=== PATIENT | male | born 1975 | race Hispanic/Latino ===

== ENCOUNTER 2016-07-02 17:37 | Observation (INO) | payer SELFPAY ==
[2016-07-02 17:43] VITALS: BMI 24.3
[2016-07-02] MEDS ORDERED: Sodium Chloride 0.9% 1,000 ML IV ONE ×2 (18:40→19:38)
[2016-07-02] MEDS ORDERED: (Novolin R) Insulin Human Regular 100 units/ml vial IV STA ×2 (18:46→19:37)
[2016-07-02] MEDS ORDERED: Sodium Chloride 0.9% 1,000 ML ONE ×2 (18:53→19:58)
[2016-07-02] MEDS ORDERED: (Novolin R) Insulin Human Regular 100 units/ml vial ONE ×2 (18:54→19:59)
[2016-07-02] MEDS ORDERED: Morphine 4 MG/ML VIAL ONE (18:56)
[2016-07-02 19:05] LABS: BASO % 0.4 % (0.0-2.0); EOS # 0.2 K/uL (0.0-0.7); HEMATOCRIT 38.1 % (35.0-51.0); LYMPH # 1.5 K/uL (1.0-4.3); MEAN CELL VOLUME 96.7 fL (80.0-94.0); MEAN CORPUSCULAR HEMOGLOBIN 32.4 pg (27.0-31.0); MEAN CORPUSCULAR HGB CONC 33.5 g/dL (33.0-37.0); MEAN PLATELET VOLUME 9.1 fL (7.2-11.7); MONO # 0.5 K/uL (0.0-0.8); MONO % 6.6 % (0.0-10.0); RED CELL DISTRIBUTION WIDTH 13.9 % (11.5-14.5); WHITE BLOOD COUNT 7.3 K/uL (4.8-10.8)
--- NOTE | 2016-07-02 19:37 | C.PDOC ---
History Of Present Illness 40 year old patient, with a past medical history of pancreatitis and diabetes, presents to the ED complaining of burning epigastric pain for the past 3 days. Patient states the pain is consistent with prior episodes of pancreatitis. Patient has alcoholic pancreatitis for many years. Patient admits he did not drink alcohol for the past 5 years. The pain is radiating to his back. Patient denies any numbness, weakness, incontinence, fever, chills, nausea, vomiting, chest pain, or diarrhea. Time Seen by Provider: 07/02/16 18:39 Chief Complaint (Nursing): Abdominal Pain History Per: Patient History/Exam Limitations: no limitations Onset/Duration Of Symptoms: Days (3) Current Symptoms Are (Timing): Still Present Context: Other Severity: Mild Pain Scale Rating Of: 3 Location Of Pain/Discomfort: Epigastric Radiation Of Pain To:: Back Quality Of Discomfort: Burning, "Pain" Exacerbating Factors: None Alleviating Factors: None Last Bowel Movement: Today Recent travel outside of the [place]: No Past Medical History Reviewed: Historical Data, Nursing Documentation, Vital Signs Vital Signs: Last Vital Signs Temp 98.5 F 07/02/16 17:43 Pulse 87 07/02/16 19:03 Resp 18 07/02/16 19:03 BP 135/86 07/02/16 19:03 Pulse Ox 95 07/02/16 22:25 - Medical History PMH: Diabetes, Pancreatitis Family History: States: Unknown Family Hx - Social History Hx Alcohol Use: No Hx Substance Use: Yes - Immunization History Hx Tetanus Toxoid Vaccination: Yes Hx Influenza Vaccination: Yes Hx Pneumococcal Vaccination: Yes Review Of Systems Except As Marked, All Systems Reviewed And Found Negative. Constitutional: Negative for: Fever, Chills Cardiovascular: Negative for: Chest Pain Respiratory: Negative for: Shortness of Breath Gastrointestinal: Positive for: Abdominal Pain (epigastric). Negative for: Nausea, Vomiting, Diarrhea Genitourinary: Negative for: Incontinence Musculoskeletal: Positive for: Back Pain Neurological: Negative for: Weakness, Numbness Physical Exam - Physical Exam Appears: Non-toxic, No Acute Distress, Other (thin, athletic) Skin: Warm, Dry Head: Atraumatic, Normacephalic Eye(s): bilateral: Normal Inspection, EOMI Oral Mucosa: Moist Neck: Normal ROM, Supple Chest: Symmetrical Cardiovascular: Rhythm Regular Respiratory: Normal Breath Sounds, No Rales, No Rhonchi, No Wheezing Gastrointestinal/Abdominal: Soft, Tenderness (epigastric), No Guarding, No Rebound Back: Normal Inspection, No CVA Tenderness Extremity: Normal ROM Neurological/Psych: Oriented x3, Normal Speech, Normal Cognition, Normal Motor, Normal Sensation Gait: Steady ED Course And Treatment - Laboratory Results Result Diagrams: 07/02/16 19:01 07/02/16 19:01 Lab Interpretation: Abnormal (repeat glu 231 W 2100, tox + THC) O2 Sat by Pulse Oximetry: 95 (room air) Pulse Ox Interpretation: Normal - CT Scan/US Abdomen/Pelvis CT Other Rad Studies (CT/US): Interpreted By Me Progress Note: Plan: -Abdomen/Pelvis CT. -EKG. -Labs. -Chest x-ray. - Morphine, Insulin, Pepcid, Zofran, IV fluids Reevaluation Time: 22:24 Reassessment Condition: Improved - Physician Consult Information Outcome Of Conversation: 2225: d/w Dr. Andrews- shade to Med Surg Obs Critical Care Time - Critical Care Note Total Time (in mins): 90 Documented critical care: time excludes all time spent performing seperately billable procedures. Medical Decision Making Medical Decision Making: acute on chronic pancreatitis and uncontrolled DM without elev Ketones Disposition Doctor Will See Patient In The: Hospital Counseled Patient/Family Regarding: Studies Performed, Diagnosis - Disposition Disposition: HOSPITALIZED Disposition Time: 22:25 Condition: GOOD - Clinical Impression Clinical Impression: Pancreatitis, Uncontrolled diabetes mellitus - Scribe Statement The provider has reviewed the documentation as recorded by the Scribe Nina Goodrich Provider Attestation: All medical record entries made by the José Antonioibe were at my direction and personally dictated by me. I have reviewed the chart and agree that the record accurately reflects my personal performance of the history, physical exam, medical decision making, and the department course for this patient. I have also personally directed, reviewed, and agree with the discharge instructions and disposition.
[2016-07-02 19:42] LABS: CHLORIDE 90 mmol/L (98-107); POTASSIUM 4.5 mmol/L (3.6-5.2); SODIUM 134 mmol/L (132-148)
[2016-07-02 19:44] LABS: GFR AFRICAN-AMERICAN > 60
[2016-07-02 19:45] LABS: ALB/GLOB RATIO 1.7 (1.0-2.1); ALKALINE PHOSPHATASE 78 U/L (38-126); ALT/SGPT 30 U/L (21-72); AST/SGOT 21 U/L (17-59); BILIRUBIN,TOTAL 1.7 mg/dL (0.2-1.3); BLOOD UREA NITROGEN 16 mg/dL (9-20); CALCIUM 9.8 mg/dl (8.6-10.4); CARBON DIOXIDE 26 mmol/L (22-30); TOTAL PROTEIN 7.5 g/dL (6.3-8.3)
[2016-07-02 19:46] LABS: ALCOHOL SERUM < 10 mg/dl (0-10)
[2016-07-02 20:15] LABS: GLUCOSE,RANDOM 609 mg/dL (75-110)
[2016-07-02 20:40] LABS: RBC URINE 1 /hpf (0-3); URINE BILIRUBIN NEGATIVE (NEGATIVE); URINE BLOOD NEGATIVE (NEGATIVE); URINE COLOR Straw (YELLOW); URINE GLUCOSE (UA) 3+ mg/dL (Normal); URINE KETONE NEGATIVE (NEGATIVE); URINE LEUKOCYTE ESTERASE NEG Leu/uL (Negative); URINE PROTEIN NEGATIVE (NEGATIVE); URINE UROBILINOGEN NORMAL mg/dL (0.2-1.0); WBC URINE < 1 /hpf (0-5)
[2016-07-02] MEDS ORDERED: Iodixanol 320 MG/ML 100 ML BOTTLE IV ONE (20:43)
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
[2016-07-02] MEDS ORDERED: Lactated Ringer's 1,000 ML IV SCH (23:45)
[2016-07-03] MEDS ORDERED: (Lantus) Insulin Glargine, Recombinant SC SCH (00:38)
[2016-07-03] MEDS: Lactated Ringer's 1,000 ML IV SCH ×4 (01:01→16:35)
[2016-07-03 07:24] LABS: BASO % 0.6 % (0.0-2.0); EOS # 0.4 K/uL (0.0-0.7); EOS % 5.5 % (0.0-4.0); HEMATOCRIT 35.3 % (35.0-51.0); LYMPH # 2.2 K/uL (1.0-4.3); LYMPH % 30.3 % (20.0-40.0); MEAN PLATELET VOLUME 8.8 fL (7.2-11.7); MONO # 0.5 K/uL (0.0-0.8); MONO % 7.2 % (0.0-10.0); RED CELL DISTRIBUTION WIDTH 13.8 % (11.5-14.5); WHITE BLOOD COUNT 7.4 K/uL (4.8-10.8)
[2016-07-03 07:27] LABS: CHLORIDE 98 mmol/L (98-107); POTASSIUM 4.3 mmol/L (3.6-5.2); SODIUM 138 mmol/L (132-148)
[2016-07-03 07:29] LABS: ALB/GLOB RATIO 1.7 (1.0-2.1); ALKALINE PHOSPHATASE 59 U/L (38-126); AST/SGOT 17 U/L (17-59); BILIRUBIN,TOTAL 1.5 mg/dL (0.2-1.3); BLOOD UREA NITROGEN 11 mg/dL (9-20); CARBON DIOXIDE 29 mmol/L (22-30); GFR AFRICAN-AMERICAN > 60; GLUCOSE,RANDOM 285 mg/dL (75-110); TOTAL PROTEIN 6.1 g/dL (6.3-8.3)
[2016-07-03 07:30] LABS: ALT/SGPT 31 U/L (21-72); CALCIUM 8.3 mg/dl (8.6-10.4); CHOLESTEROL 140 mg/dL (0-199); MAGNESIUM 1.8 mg/dL (1.6-2.3); PHOSPHOROUS 3.1 mg/dL (2.5-4.5)
[2016-07-03] MEDS: (Novolog) Insulin Aspart, Recombinant 100 u/ml 10 ml vial SC SCH ×2 (08:02→12:12)
--- NOTE | 2016-07-03 08:41 | CT ---
PROCEDURE: CT Abdomen and Pelvis with contrast HISTORY: Epigastric pain. Relevant medical history: Pancreatitis COMPARISON: None. TECHNIQUE: Contrast dose: 100 cc Visipaque 320. Radiation dose: Total exam DLP = 449.28 mGy-cm. This CT exam was performed using one or more of the following dose reduction techniques: Automated exposure control, adjustment of the mA and/or kV according to patient size, and/or use of iterative reconstruction technique. FINDINGS: LOWER THORAX: Unremarkable. LIVER: Unremarkable. No gross lesion or ductal dilatation. GALLBLADDER AND BILE DUCTS: Unremarkable. PANCREAS: Atrophic pancreas. Innumerable pancreatic calcifications consistent with chronic pancreatitis without evidence of acute pancreatitis. SPLEEN: Unremarkable. ADRENALS: Unremarkable. No mass. KIDNEYS AND URETERS: Unremarkable. No hydronephrosis. No solid mass. VASCULATURE: Unremarkable. No aortic aneurysm. BOWEL: Unremarkable. No obstruction. No gross mural thickening. Constipation without fecal impaction or obstruction. APPENDIX: Normal appendix. PERITONEUM: Unremarkable. No free fluid. No free air. LYMPH NODES: Unremarkable. No enlarged lymph nodes. BLADDER: Unremarkable. REPRODUCTIVE: Unremarkable. BONES: No acute fracture. OTHER FINDINGS: None. IMPRESSION: No acute findings related to/accounting for the clinical presentation. Additional benign and/or incidental findings described above. Concordant results (preliminary interpretation) provided by [employer]. Procedure Completed: 21:18. Preliminary ([facility]) Report: Dictated and Authenticated: 21:32 Final Interpretation: 08:38. July 03, 2016.
--- NOTE | 2016-07-03 12:03 | RAD ---
PROCEDURE: CHEST RADIOGRAPH, 1 VIEW portable study 19:00. HISTORY: abd pain COMPARISON: None available. FINDINGS: LUNGS: Clear. PLEURA: No pneumothorax or pleural fluid seen. CARDIOVASCULAR: Normal. OSSEOUS STRUCTURES: No significant abnormalities. VISUALIZED UPPER ABDOMEN: Normal. OTHER FINDINGS: None. IMPRESSION: No active disease.
--- NOTE | 2016-07-03 16:17 | CP.PCM.PN ---
<Katy Hurst Reinier - Last Filed: 07/03/16 15:53> Subjective - Date & Time of Evaluation Date of Evaluation: 07/03/16 Time of Evaluation: 09:40 - Subjective Subjective: PGY2 Medicine Note- Dr. Jones's service: Patient seen and examined at bedside this AM. Patient reports abdominal pain. Patient says he has had pancreatitis before. He stopped drinking 5 years ago so he thought he could not have it again. He was keeping food down and did not feel nauseous. He decided to come into ED yesterday because the pain got so bad. Patient reports improved pain but only because of pain meds. Patient says he has a big [employer] job tomorrow and wants to go to it. Patient denies fever, chills, chest pain, headache, SOB, nausea, vomiting, diarrhea, constipation, dysuria. Objective - Vital Signs/Intake and Output Vital Signs (last 24 hours): Temp Pulse Resp BP Pulse Ox 97.6 F 69 20 124/74 94 L 07/03/16 08:29 07/03/16 08:29 07/03/16 08:29 07/03/16 08:29 07/03/16 08:29 Intake and Output: 07/03/16 07/03/16 06:59 18:59 Intake Total 875 1294 Balance 875 1294 - Medications Medications: Current Medications Famotidine (Pepcid) 20 mg IVP Q12 [facility] Last Admin: 07/03/16 09:20 Dose: 20 mg Heparin Sodium (Porcine) (Heparin) 5,000 units SC Q12 [facility] Last Admin: 07/03/16 11:17 Dose: 5,000 units Lactated Ringer's (Lactated Ringer's) 1,000 mls @ 200 mls/hr IV .Q5H [facility] Last Admin: 07/03/16 15:17 Dose: Not Given Insulin Aspart (Novolog) 0 unit SC ACHS [facility] PRN Reason: Protocol Last Admin: 07/03/16 12:12 Dose: 3 unit Insulin Glargine (Lantus) 18 unit SC HS [facility] Last Admin: 07/03/16 00:56 Dose: 18 units Morphine Sulfate (Morphine) 2 mg IVP Q4H PRN PRN Reason: Pain, moderate (4-7) Last Admin: 07/03/16 12:08 Dose: 2 mg Ondansetron HCl (Zofran Inj) 4 mg IVP Q6H PRN PRN Reason: Nausea/Vomiting - Labs Labs: 07/03/16 07:11 07/03/16 07:11 - Constitutional Appears: Non-toxic, No Acute Distress - Head Exam Head Exam: NORMAL INSPECTION - Eye Exam Eye Exam: EOMI - ENT Exam ENT Exam: Mucous Membranes Moist - Respiratory Exam Respiratory Exam: Clear to Ausculation Bilateral, NORMAL BREATHING PATTERN. absent: Rales, Rhonchi, Wheezes - Cardiovascular Exam Cardiovascular Exam: REGULAR RHYTHM, +S1, +S2. absent: Gallop, Rubs, Murmur - GI/Abdominal Exam GI & Abdominal Exam: Soft, Tenderness, Normal Bowel Sounds Additional comments: no rosa maria's sign - Extremities Exam Extremities Exam: Normal Capillary Refill. absent: Pedal Edema - Neurological Exam Neurological Exam: Alert, Awake, Oriented x3 - Psychiatric Exam Psychiatric exam: Normal Affect, Normal Mood - Skin Skin Exam: Normal Color, Warm Assessment and Plan - Assessment and Plan (Free Text) Assessment: (1) Pancreatitis Assessment and Plan: CT abd/pelvis- pancreatic calcifications noted suggestive of chronic pancreatitis; no peripancreatic fluid noted; constipation; small focal liver hypodensity- Refer to full report EKG- NSR Lipase 1561 LR @ 125 cc/hr Monitor for signs of fluid overload Full liquid diet Morphine 2 mg IV Q4 PRN Zofran 4 mg Q 6 PRN Lipase decreased from 1500s to 1100s Status: Acute (2) Uncontrolled diabetes mellitus Assessment and Plan: Patient received 10 units and then an additional 8 units Insulin in ED Patient put on home regimen of regular 35U SC BID ISS F/U Hgb A1c, Lipid panel Accuchecks Home meds confirmed. Patient will likely benefit from diabetic management counseling Status: Acute (3) Drug use disorder Assessment and Plan: Hx of polysubstance use; prior alcohol use; though now sober 5 years UDS positive for marijuana Counseled on cessation Status: Acute (4) Prophylactic measure Assessment and Plan: SCDs Pepcid 20 mg IV Q12 Status: Acute <Jones,Peter H - Last Filed: 07/03/16 17:50> Objective - Vital Signs/Intake and Output Vital Signs (last 24 hours): Temp Pulse Resp BP Pulse Ox 97.9 F 81 21 111/72 95 07/03/16 16:00 07/03/16 16:00 07/03/16 16:00 07/03/16 16:00 07/03/16 16:00 Intake and Output: 07/03/16 07/03/16 06:59 18:59 Intake Total 875 1294 Balance 875 1294 - Medications Medications: Current Medications Famotidine (Pepcid) 20 mg IVP Q12 [facility] Last Admin: 07/03/16 09:20 Dose: 20 mg Heparin Sodium (Porcine) (Heparin) 5,000 units SC Q12 [facility] Last Admin: 07/03/16 11:17 Dose: 5,000 units Lactated Ringer's (Lactated Ringer's) 1,000 mls @ 200 mls/hr IV .Q5H [facility] Last Admin: 07/03/16 16:35 Dose: Not Given Insulin Aspart (Novolog) 0 unit SC ACHS [facility] PRN Reason: Protocol Last Admin: 07/03/16 12:12 Dose: 3 unit Insulin Human Regular (Novolin R) 17 unit SC BID [facility] Morphine Sulfate (Morphine) 2 mg IVP Q4H PRN PRN Reason: Pain, moderate (4-7) Last Admin: 07/03/16 16:08 Dose: 2 mg Ondansetron HCl (Zofran Inj) 4 mg IVP Q6H PRN PRN Reason: Nausea/Vomiting - Labs Labs: 07/03/16 07:11 07/03/16 07:11 Attending/Attestation - Attestation I have personally seen and examined this patient.: Yes I have fully participated in the care of the patient.: Yes I have reviewed all pertinent clinical information, including history, physical exam and plan: Yes Notes (Text): 07/03/16 17:46 Medical Attending: Patient was seen and examined by me. Agree with the above note by the resident. We saw the patient together. When we saw the patient he reported feeling much better than before. He wanted to try a light diet and so we advanced him to a clear liquid diet. We reviewed some of the numbers with the patient as well as CT scan. The patient explained to us that he was considering leaving later in the day since he had to work tommorow. We advised him to stay, but I later learned he did decide to leave AMA. Dylon Jones
[2016-07-03 17:14] VITALS: BP 111/72; PULSE 81; RESP 21; TEMP 97.9; O2SAT 95
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
[2016-07-03] MEDS ORDERED: (Novolin R) Insulin Human Regular 100 units/ml vial SC SCH ×2 (18:00)
--- NOTE | 2016-07-09 13:38 | CARD ---
APPROVED REPORT EKG Measurement Heart [id number] <Conclusion> Normal sinus rhythm Normal ECG
== END 2016-07-03 17:00 | disposition left against medical advice (07) ==
LOC: C.ER 17:37 → C.9E 22:23 → C.3T 22:39
PROVIDERS: ADMIT Internal Medicine; ATTEND Internal Medicine
DX: K85.90 Acute pancreatitis without necrosis or infection, unspecified (principal); E11.65 Type 2 diabetes mellitus with hyperglycemia; F17.210 Nicotine dependence, cigarettes, uncomplicated; Z79.4 Long term (current) use of insulin; F12.10 Cannabis abuse, uncomplicated
CPT/HCPCS: 36415; 71010; 74177; 80053; 80061; 81001; 82009; 82948; 83036; 83690; 83735; 84100; 85025; 96361; 96372; 96374; 96375; 96376; 99285; G0378; G0480; J1644; J2270; J2405; J7040; J7120; Q9967

== ENCOUNTER 2017-07-30 15:51 | Emergency (ER) | payer SELFPAY ==
[2017-07-30 15:52] VITALS: BMI 23.7
[2017-07-30 16:05] VITALS: RESP 20
[2017-07-30] MEDS ORDERED: Sodium Chloride 0.9% 1,000 ML IV ONE (16:24)
--- NOTE | 2017-07-30 16:28 | C.PDOC ---
History Of Present Illness 41 y/o male with a history of pancreatitis and diabetes presents to the ED for muscle cramps all over his body. Patient reports he has lost 25 lbs in the last 2 months associated with fatigue. He takes insulin daily but hasn't seen a PMD in many years. Patient also complains of loose stools for the past 4 months. He also reports he has recently had teeth fall out. Patient also has a Dupuytren's contracture in his left pinky. Denies any SOB, chest pain, or fever. PMD: has none Time Seen by Provider: 07/30/17 16:14 Chief Complaint (Nursing): Abdominal Pain History Per: Patient History/Exam Limitations: no limitations Onset/Duration Of Symptoms: Days Current Symptoms Are (Timing): Still Present Associated Symptoms: denies: Fever, Back Pain Recent travel outside of the [place]: No Past Medical History Reviewed: Historical Data, Nursing Documentation, Vital Signs Vital Signs: Last Vital Signs Temp 98.7 F 07/30/17 15:59 Pulse 108 H 07/30/17 15:59 Resp 20 07/30/17 15:59 BP 123/80 07/30/17 15:59 Pulse Ox 97 07/30/17 16:36 - Medical History PMH: Anxiety, Diabetes, Pancreatitis Denies: Bipolar Disorder, Crohn's Disease, Depression, Diverticulitis, Gastritis, Gall Bladder Disease, Hepatitis, HIV, HTN, Hyperthyroidism, Hypothyroidism, Paranoia, Post Traumatic Stress Disorder, Chronic Kidney Disease , Schizophrenia, Seizures, Sexually Transmitted Disease Surgical History: Denies: Appendectomy, CABG, Carotid Endarterectomy, Cholecystectomy, Coronary Stent, Tonsillectomy Family History: States: Unknown Family Hx - Social History Hx Tobacco Use: Yes Hx Alcohol Use: No (extensive HX however 6 years sober) Hx Substance Use: Yes (cocaine and cannabis) - Immunization History Hx Tetanus Toxoid Vaccination: (unk) Hx Influenza Vaccination: No Hx Pneumococcal Vaccination: (unk) Review Of Systems Except As Marked, All Systems Reviewed And Found Negative. Constitutional: Positive for: Weight loss, Other (fatigue). Negative for: Fever ENT: Positive for: Other (teeth fallling out) Cardiovascular: Negative for: Chest Pain Respiratory: Negative for: Shortness of Breath Gastrointestinal: Positive for: Other (loose stool) Musculoskeletal: Positive for: Neck Pain, Other (muscular cramps throughout entire body) Physical Exam - Physical Exam Appears: Non-toxic, No Acute Distress, Other (anxious and thin) Skin: Normal Color, Warm, No Dry (moist), No Rash Head: Atraumatic Eye(s): bilateral: Normal Inspection, PERRL, EOMI Neck: Normal, Supple Cardiovascular: Rhythm Regular, No Murmur Respiratory: Normal Breath Sounds Gastrointestinal/Abdominal: Normal Exam, Soft, No Tenderness Back: Normal Inspection Neurological/Psych: Oriented x3 ED Course And Treatment - Laboratory Results Result Diagrams: 07/30/17 16:38 07/30/17 16:38 O2 Sat by Pulse Oximetry: 97 (RA) Pulse Ox Interpretation: Normal Medical Decision Making Medical Decision Making: Time: 15:59 Impression: Diabetes, systemic illness, chronic weight loss Initial Plan: * EKG * CMP * Lipase Stat * CBC * Chest X-Ray * IV Fluids Scribe Attestation: Documented by Ty Castro acting as a scribe Taylor Duarte MD. Scribe Attestation: All medical record entries made by the Scribe were at my direction and personally dictated by me. I have reviewed the chart and agree that the record accurately reflects my personal performance of the history, physical exam, medical decision making, and the department course for this patient. I have also personally directed, reviewed, and agree with the discharge instructions and disposition. Disposition - Disposition Referrals: [facility] [Outside] Disposition: HOME/ ROUTINE Disposition Time: 18:07 Condition: IMPROVED Forms: [facility] (Omani), General Discharge Instructions - POA Present On Arrival: None - Clinical Impression Clinical Impression: Weight loss, Hyperglycemia
[2017-07-30 16:41] LABS: BASO % 0.6 % (0.0-2.0); EOS # 0.2 K/uL (0.0-0.7); EOS % 3.5 % (0.0-4.0); HEMOGLOBIN 12.7 g/dL (12.0-18.0); LYMPH # 1.6 K/uL (1.0-4.3); LYMPH % 22.4 % (20.0-40.0); MEAN CELL VOLUME 96.5 fL (80.0-94.0); MEAN CORPUSCULAR HEMOGLOBIN 32.7 pg (27.0-31.0); MEAN CORPUSCULAR HGB CONC 33.9 g/dL (33.0-37.0); MEAN PLATELET VOLUME 8.6 fL (7.2-11.7); MONO # 0.5 K/uL (0.0-0.8); MONO % 6.6 % (0.0-10.0); NEUT # 4.7 K/uL (1.8-7.0); NEUT % 66.9 % (50.0-75.0); RBC 3.89 Mil/uL (4.40-5.90); RED CELL DISTRIBUTION WIDTH 12.1 % (11.5-14.5)
--- NOTE | 2017-07-30 16:55 | RAD ---
Chest x-ray single frontal view History: Chest pain. Comparison: None available. Findings: Mild venous congestion. Mild bilateral hilar prominence. Heart size within normal limits. Degenerative changes in the spine. Impression: Mild venous congestion. Mild bilateral hilar prominence.
[2017-07-30 17:11] LABS: ALB/GLOB RATIO 1.6 (1.0-2.1); ALBUMIN 4.4 g/dL (3.5-5.0); ALT/SGPT 53 U/L (21-72); AST/SGOT 36 U/L (17-59); BLOOD UREA NITROGEN 13 mg/dL (9-20); CALCIUM 9.1 mg/dl (8.6-10.4); GFR AFRICAN-AMERICAN > 60; GFR NON-AFRICAN AMERICAN > 60; LIPASE 65 U/L (23-300)
[2017-07-30] MEDS ORDERED: Sodium Chloride 0.9% 1,000 ML ONE (17:49)
[2017-07-30] MEDS ORDERED: (Novolin R) Insulin Human Regular 100 units/ml vial IV STA (18:06)
[2017-07-30 18:23] VITALS: BP 110/70; PULSE 90; TEMP 98.3; O2SAT 96
--- NOTE | 2017-08-02 13:40 | CARD ---
APPROVED REPORT EKG Measurement Heart [id number] [id number] <Conclusion> Normal sinus rhythm with sinus arrhythmia Normal ECG
== END 2017-07-30 18:22 | disposition home or self-care (01) ==
LOC: C.ER 15:51
DX: E11.65 Type 2 diabetes mellitus with hyperglycemia (principal); R63.4 Abnormal weight loss; Z72.0 Tobacco use
CPT/HCPCS: 71045; 80053; 83690; 85025; 96360; 99284; J7030

== ENCOUNTER 2017-08-04 10:36 | Emergency (ER) | payer OTHER ==
[2017-08-04 10:37] VITALS: BMI 23.7
--- NOTE | 2017-08-04 12:51 | C.PDOC ---
History Of Present Illness 41yo male with history of diabetes, pancreatitis, presents to ER with complaints of body aches and feeling tired. Patient states he has also lost over 40lbs of weight over the past 5 months. He also reports over the past 3 months, he has been having intermittent watery diarrhea. Pt is concerned that " I drank so much alcohol before, is my pancreas still functioning. " Also requests to know if he has cancer. He denies any abdominal pain, nausea, vomiting, fever, chills, chest pain, shortness of breath. PT was seen 5 days ago for the same complaints, with normal labs and instructed to f/u with clinic. No new complaints. Admits to marijuana and cocaine use. Patient has a scheduled follow up in the clinic on 08/09/17. Time Seen by Provider: 08/04/17 11:23 Chief Complaint (Nursing): Medical Clearance History Per: Patient History/Exam Limitations: no limitations Onset/Duration Of Symptoms: Days Additional History Per: Patient Past Medical History Reviewed: Historical Data, Nursing Documentation, Vital Signs Vital Signs: Last Vital Signs Temp 98.3 F 08/04/17 13:08 Pulse 100 H 08/04/17 13:08 Resp 18 08/04/17 13:19 BP 108/79 08/04/17 13:08 Pulse Ox 98 08/05/17 14:17 - Medical History PMH: Anxiety, Diabetes, Pancreatitis Denies: Bipolar Disorder, Crohn's Disease, Depression, Diverticulitis, Gastritis, Gall Bladder Disease, Hepatitis, HIV, HTN, Hyperthyroidism, Hypothyroidism, Paranoia, Post Traumatic Stress Disorder, Chronic Kidney Disease , Schizophrenia, Seizures, Sexually Transmitted Disease Surgical History: Denies: Appendectomy, CABG, Carotid Endarterectomy, Cholecystectomy, Coronary Stent, Tonsillectomy Family History: States: No Known Family Hx, Unknown Family Hx - Social History Hx Tobacco Use: Yes Hx Alcohol Use: No (extensive HX however 6 years sober) Hx Substance Use: Yes (cocaine and cannabis) - Immunization History Hx Tetanus Toxoid Vaccination: (unk) Hx Influenza Vaccination: No Hx Pneumococcal Vaccination: (unk) Review Of Systems Except As Marked, All Systems Reviewed And Found Negative. Constitutional: Positive for: Malaise, Weight loss (50 lbs over 6 weeks). Negative for: Fever, Chills Cardiovascular: Negative for: Chest Pain Respiratory: Negative for: Shortness of Breath Gastrointestinal: Positive for: Diarrhea. Negative for: Nausea, Vomiting, Abdominal Pain Physical Exam - Physical Exam Appears: Non-toxic, No Acute Distress, Other (thin) Skin: Warm, Dry Head: Atraumatic, Normacephalic Eye(s): bilateral: Normal Inspection, EOMI Nose: Normal Oral Mucosa: Moist Neck: Normal ROM, Supple Chest: Symmetrical Cardiovascular: Rhythm Regular Respiratory: Normal Breath Sounds Gastrointestinal/Abdominal: Normal Exam, Soft, No Tenderness, No Mass, No Guarding, No Rebound Extremity: Normal ROM Neurological/Psych: Oriented x3 ED Course And Treatment O2 Sat by Pulse Oximetry: 98 (RA) Pulse Ox Interpretation: Normal Progress Note: Extensively discussed with patient signs and symptoms of concern. Patient was offered repeat labs, imaging studies and stool study as well, which he declined. He states he feels comfortable going home without further workup. Patient noted to have figerstick glucose level of 331 and again offered medication and further eval. Patient noted took 10 units of insulin and requests to be discharged. Case discussed with Dr. Celis and agrees with plan for discharge. Disposition - Disposition Referrals: [facility] [Outside] Disposition: HOME/ ROUTINE Disposition Time: 12:50 Condition: STABLE Additional Instructions: Follow up with the clinic as scheduled. Return to ER if symptoms persist or worsen. Instructions: Hyperglycemia, Adult (DC) Forms: [facility] (Mauritanian) - Clinical Impression Clinical Impression: Hyperglycemia, Uncontrolled diabetes mellitus, Weight loss - PA / INSURANCE SALES AGENT / Resident Statement MD/DO has reviewed & agrees with the documentation as recorded. - Scribe Statement The provider has reviewed the documentation as recorded by the Scribe (Katina Kirkpatrick) Provider Attestation: All medical record entries made by the Scribe were at my direction and personally dictated by me. I have reviewed the chart and agree that the record accurately reflects my personal performance of the history, physical exam, medical decision making, and the department course for this patient. I have also personally directed, reviewed, and agree with the discharge instructions and disposition.
[2017-08-04 13:09] VITALS: BP 108/79; PULSE 100; RESP 18; TEMP 98.3
[2017-08-04 13:30] VITALS: O2SAT 98
--- NOTE | 2017-08-06 12:09 | CARD ---
APPROVED REPORT EKG Measurement Heart [id number] [place] 146P63 [id number] <Conclusion> Normal sinus rhythm Normal ECG
== END 2017-08-04 13:21 | disposition home or self-care (01) ==
LOC: C.ER 10:36
DX: E11.65 Type 2 diabetes mellitus with hyperglycemia (principal); Z79.4 Long term (current) use of insulin; R63.4 Abnormal weight loss